=== PATIENT | female | born 1965 | race Caucasian/White ===

== ENCOUNTER 2023-02-03 19:33 | Inpatient (IN) | payer OTHER ==
[~2023-02-03 19:33] MED LIST: Iopamidol 300 61% 100 ML VIAL FS ONE
[2023-02-03] MEDS ORDERED: Acetaminophen 500 MG TAB ONE (19:54)
[2023-02-03] MEDS ORDERED: Cefepime 2 GM VIAL ONE (19:55)
[2023-02-03] MEDS ORDERED: Lidocaine 1% (PF) 30 ML VIAL ONE ×2 (19:55→20:48)
[2023-02-03] MEDS ORDERED: Ibuprofen 200 MG TAB ONE (19:57)
[2023-02-03] MEDS ORDERED: Vancomycin 1.5 GRAM/300 ML BAG 1.5 GM in Premix Bag 1 BAG IVPB ONE (20:15)
[2023-02-03 20:26] LABS: Actual Bicarbonate (HCO3v) 13.3 mEq/L (22-28); Base Excess -9.2 mEq/L (-2 - +2); Calcium, Ionized (venous) 1.07 mmol/L (1.16-1.32); Chloride (VBG) 90 mmol/L (98-106); Critical Notified By: CP.PH; Hematocrit-VBG 36 % (36.0-47.0); Hemoglobin (Hb) 12.1 g/dL (11.7-16.0); Potassium (VBG) 3.99 mmol/L (3.70-5.30); Puncture Site Other Site; Sodium 119.1 mmol/L (133-146); pH (venous) 7.417 (7.32-7.43)
[2023-02-03 20:34] LABS: Hemoglobin 11.1 g/dL (12.0-15.5); Mean Corpuscular HGB CONC 34.7 g/dL (32.0-36.0); Mean Corpuscular Hemoglobin 29.7 pg (27.0-33.0); Mean Corpuscular Volume 85.6 fl (81.6-98.3); Mean Platelet Volume 10.9 fl (7.4-10.4); Platelet Count 49 10x3/uL (150-450); RBC Distribution Width 17.2 % (11.5-14.5); Red Blood Cell (RBC) Count 3.74 10x6/uL (3.90-5.03); White Blood Cell (WBC) Count 4.4 10x3/uL (3.5-10.5)
[2023-02-03 20:35] LABS: MDiff Complete? YES
[2023-02-03 20:39] LABS: INR-International Normal Ratio 2.1; PTT 40.9 sec (22.0-33.0); Prothrombin Time 22.1 sec (9.5-12.1)
[2023-02-03 20:41] LABS: ALT (SGPT) 49 U/L (8-55); AST (SGOT) 251 U/L (5-34); Albumin 2.9 g/dL (3.5-5.0); Alkaline Phosphatase 54 U/L (40-110); Anion Gap 22 mmol/L (10-20); BUN (Urea Nitrogen) 48 mg/dL (9.8-20.1); Bilirubin, Total 8.5 mg/dL (0.2-1.2); Calc. Creatinine Clearance 0 mL/min (70-130); Calcium 8.3 mg/dL (7.8-10.44); Carbon Dioxide 10 mmol/L (22-29); Chloride 90 mmol/L (98-107); Estimated GFR 26; Globulin 3.8 g/dL (2.4-3.5); Glucose 72 mg/dL (70-105); Lipase 16 U/L (8-78); Potassium 3.8 mmol/L (3.5-5.1); Protein, Total 6.7 g/dL (6.0-8.3)
[2023-02-03 21:05] LABS: CKMB 24.9 ng/mL (0-6.6)
[2023-02-03 21:10] LABS: SARS-CoV-2 NAA Rapid Test Not Detected (NotDetected)
[2023-02-03 21:11] LABS: BHCG - Serum Negative (NEGATIVE); Pregs Control Background? CLEAR/WHITE (CLR/WHITE); Pregs Control Bar Appear? YES (CONTROL BAR)
[2023-02-03 21:17] LABS: Sodium 118 mmol/L (136-145)
[2023-02-03 21:26] LABS: Acetaminophen Less than 10 mcg/mL (10.0-30.0); Alcohol Less than 10.0 mg/dL (Less than 10); Salicylate Less than 8.0 mg/dL (15.0-30.0)
[2023-02-03 21:27] LABS: Microcytosis SLIGHT = 6-15 cells (100X) (0-5/hpf); Platelet Adequacy Comment Appears Decreased
[2023-02-03 21:29] LABS: Band 9 % (5-11); Lymphocytes 8 % (21-51); Metamyelocyte 1 % (0-0); Monocytes 10 % (0-10); Neutrophil 72 % (42-75)
[2023-02-03] MEDS ORDERED: Ondansetron PF 4 MG/2 ML Vial IVP PRN (22:18)
[2023-02-03] MEDS ORDERED: Guaifenesin DM 100-10/5 ML UDCUP PO PRN (22:18)
[2023-02-03] MEDS ORDERED: Calcium Carbonate 500 MG ChewTAB PO PRN (22:18)
[2023-02-03] MEDS ORDERED: Senokot S 8.6-50 MG TAB PO PRN (22:18)
[2023-02-03 22:19] LABS: Color Of CSF Supernatant COLORLESS (Colorless); Tube # 1; Unspun CSF Color COLORLESS (Colorless)
[2023-02-03 22:22] LABS: CSF, Glucose 40 mg/dl (40-70); CSF, Protein 41 mg/dL (15-40)
[2023-02-03] MEDS ORDERED: Pantoprazole 40 MG VIAL IVP SCH (22:45)
[2023-02-03] MEDS ORDERED: Albumin 25% 25 GM/100 ML BOT IVPB SCH ×2 (22:45→23:59)
[2023-02-03 22:59] LABS: Lactic Acid 3.8 mmol/L (0.5-2.2)
[2023-02-03 23:03] LABS: Anion Gap 20 mmol/L (10-20); BUN (Urea Nitrogen) 50 mg/dL (9.8-20.1); Calc. Creatinine Clearance 0 mL/min (70-130); Calcium 8.1 mg/dL (7.8-10.44); Carbon Dioxide 11 mmol/L (22-29); Chloride 91 mmol/L (98-107); Estimated GFR 24; Glucose 71 mg/dL (70-105); Potassium 3.4 mmol/L (3.5-5.1); Sodium 119 mmol/L (136-145)
[2023-02-03] MEDS ORDERED: NOREPINEPHRINE 8 MG/250 ML-D5W 250 ML ONE (23:19)
[2023-02-03] MEDS ORDERED: Albumin 25% 100 ML ONE (23:24)
[2023-02-03 23:29] LABS: CSF Source CSF; Clarity Clear (Clear); Tube # 1
[2023-02-03] MEDS ORDERED: Pantoprazole 40 MG VIAL ONE (23:29)
[2023-02-03 23:30] LABS: CSF WBC/NonHematics Count-Man 0 /cu.mm (0-5)
[2023-02-03 23:31] LABS: CSF RBC Count - Manual 2 /cu.mm (None Seen); CSF Source CSF; Clarity Clear (Clear); Tube # 4
[2023-02-03 23:32] LABS: CSF RBC Count - Manual 1 /cu.mm (None Seen); CSF WBC/NonHematics Count-Man 0 /cu.mm (0-5)
[2023-02-03] MEDS ORDERED: Thiamine HCl 200 MG/2 ML VIAL ONE (23:58)
[2023-02-03] MEDS ORDERED: Meropenem 500 MG VIAL ONE (23:58)
[2023-02-04] MEDS ORDERED: Vancomycin Dose by Levels Sliding Scale (Wt 71-99) FS SCH (02:00)
[2023-02-04 03:02] LABS: Bilirubin 1+ (Negative); Blood, Urine 250 (Negative); Clarity Slightly Cloudy (Clear); Glucose, Urine (Dipstick) Normal (Negative); Ketone, Urine 5 mg/dL (Negative); Leukocyte 25 (Negative); Nitrite Negative (Negative); Protein, Urine (Dipstick) 100 mg/dl (Neg-Trace)
[2023-02-04 03:12] LABS: Bacteria/HPF 1+ HPF (None Seen); CAUTI Indications for Culture Alt mental st,lethar; Transitional Epithelial 0-3 HPF (None Seen)
[2023-02-04 03:13] LABS: Urine Culture Reflex No No
[2023-02-04 04:28] LABS: Lactic Acid 2.4 mmol/L (0.5-2.2)
[2023-02-04 04:30] LABS: Hematocrit 30.8 % (34.9-44.5); Hemoglobin 10.6 g/dL (12.0-15.5); Mean Corpuscular HGB CONC 34.4 g/dL (32.0-36.0); Mean Corpuscular Hemoglobin 29.4 pg (27.0-33.0); Mean Corpuscular Volume 85.3 fl (81.6-98.3); Mean Platelet Volume 10.6 fl (7.4-10.4); Platelet Count 40 10x3/uL (150-450); RBC Distribution Width 17.3 % (11.5-14.5); Red Blood Cell (RBC) Count 3.61 10x6/uL (3.90-5.03); White Blood Cell (WBC) Count 6.1 10x3/uL (3.5-10.5)
[2023-02-04 04:31] LABS: PTT 36.2 sec (22.0-33.0); Prothrombin Time 21.2 sec (9.5-12.1)
[2023-02-04 04:33] LABS: ALT (SGPT) 105 U/L (8-55); AST (SGOT) 687 U/L (5-34); Albumin 3.3 g/dL (3.5-5.0); Alkaline Phosphatase 50 U/L (40-110); Anion Gap 21 mmol/L (10-20); BUN (Urea Nitrogen) 55 mg/dL (9.8-20.1); Bilirubin, Total 9.3 mg/dL (0.2-1.2); Calc. Creatinine Clearance 29 mL/min (70-130); Calcium 8.3 mg/dL (7.8-10.44); Carbon Dioxide 12 mmol/L (22-29); Chloride 90 mmol/L (98-107); Estimated GFR 23; Globulin 3.7 g/dL (2.4-3.5); Glucose 77 mg/dL (70-105); Potassium 3.4 mmol/L (3.5-5.1); Sodium 120 mmol/L (136-145)
[2023-02-04 04:34] LABS: MDiff Complete? YES
[2023-02-04 05:11] LABS: Platelet Adequacy Comment Appears Decreased
[2023-02-04 05:12] LABS: Large Platelets SLIGHT (None Seen)
[2023-02-04 05:13] LABS: Microcytosis SLIGHT = 6-15 cells (100X) (0-5/hpf)
[2023-02-04 05:17] LABS: Band 12 % (5-11); Eosinophils 1 % (0-10); Lymphocytes 5 % (21-51); Metamyelocyte 2 % (0-0); Monocytes 16 % (0-10); Neutrophil 64 % (42-75); Nucleated RBC (Manual Ct) 2 % (0)
[2023-02-04 05:57] LABS: CK (CPK) 31464 U/L (29-168)
[2023-02-04] MEDS: Albumin 25% 25 GM/100 ML BOT IVPB SCH ×3 (05:59→17:21)
[2023-02-04] MEDS ORDERED: Albumin 25% 100 ML ONE (06:00)
[2023-02-04 07:27] LABS: Creatinine, Urine 175.26 mg/dL (47-110); Protein, Urine Random Quant 90 mg/dL (1-14)
[2023-02-04] MEDS: Sodium Bicarbonate 150 MEQ in Dextrose 5% in Water 1,000 ML IV SCH ×3 (08:20→21:56)
[2023-02-04 08:27] LABS: Anion Gap 22 mmol/L (10-20); BUN (Urea Nitrogen) 59 mg/dL (9.8-20.1); Calc. Creatinine Clearance 28 mL/min (70-130); Calcium 8.5 mg/dL (7.8-10.44); Carbon Dioxide 12 mmol/L (22-29); Chloride 91 mmol/L (98-107); Estimated GFR 22; Glucose 75 mg/dL (70-105); Potassium 3.4 mmol/L (3.5-5.1); Sodium 122 mmol/L (136-145)
[2023-02-04] MEDS ORDERED: Potassium Bicarbonate/Cit Ac 20 MEQ TAB PO SCH (08:45)
[2023-02-04] MEDS ORDERED: Vancomycin 1 GM in Premix Bag 1 BAG IVPB SCH (09:00)
[2023-02-04] MEDS: Thiamine HCl 200 MG/2 ML VIAL SLOW IVP SCH (09:29)
[2023-02-04 09:34] LABS: Phosphorus 4.9 mg/dL (2.3-4.7)
[2023-02-04] MEDS: Folic Acid 1 MG TAB PO SCH (09:38)
[2023-02-04] MEDS: Pantoprazole 40 MG VIAL IVP SCH ×2 (09:38→21:51)
[2023-02-04] MEDS: Multivitamin W/ Minerals 1 TAB PO SCH (09:38)
[2023-02-04] MEDS: Rifaximin 200 MG TAB PO SCH ×2 (10:05→21:56)
[2023-02-04 10:45] LABS: Bilirubin Neg (Negative); Blood, Urine 250 (Negative); Clarity Cloudy (Clear); Glucose, Urine (Dipstick) Normal (Negative); Ketone, Urine 5 mg/dL (Negative); Leukocyte 25 (Negative); Nitrite Negative (Negative); Protein, Urine (Dipstick) 100 mg/dl (Neg-Trace); Specific Gravity, Urine 1.015 (1.005-1.030); Urobilinogen Normal mg/dL (Less than 2)
[2023-02-04 10:51] LABS: Amphetamine Not Detected (NotDetected); Barbiturates Screen Not Detected (NotDetected); Benzodiazepine Screen Not Detected (NotDetected); Cocaine Metabolite Screen Not Detected (NotDetected); Methadone Not Detected (NotDetected); Methamphetamine Not Detected (NotDetected); Opiate Screen Not Detected (NotDetected); Oxycodone Screen Not Detected (NotDetected); Phencyclidine (PCP) Not Detected (NotDetected); THC/Cannabinoid Screen Not Detected (NotDetected); Tricyclic Screen Not Detected (NotDetected)
[2023-02-04 11:10] LABS: Legionella Urinary Ag Negative (Negative); Strep pneumo Urine Ag NEGATIVE (NEGATIVE)
[2023-02-04 11:11] LABS: Bacteria/HPF 2+ HPF (None Seen)
[2023-02-04] MEDS: NOREPINEPHRINE 8 MG/250 ML-D5W 250 ML IVPB SCH ×2 (11:39→22:37)
[2023-02-04] MEDS: Meropenem 500 MG in Sodium Chloride 0.9% 100 ML IVPB SCH (11:42)
[2023-02-04 13:26] LABS: Sodium, Urine Less than 20 mmol/L (Not Available); Urea Nitrogen, Random Urine 255 mg/dl
[2023-02-04 14:35] LABS: Potassium, Urine 25.9 mmol/L; Sodium, Urine Less than 20 mmol/L (Not Available)
[2023-02-04 14:42] LABS: Hep A IgM AB Non-Reactive S/CO (NonReactive); Hep A IgM S/CO 0.23 S/CO (0-0.79); Hep C IgG Ab Non-Reactive S/CO (NonReactive)
[2023-02-04 14:51] LABS: HBCM Index 1.25 S/CO (0-0.79); Hepatitis B Core IgM Abs Reactive S/CO (NonReactive)
[2023-02-04 16:13] LABS: Anion Gap 20 mmol/L (10-20); BUN (Urea Nitrogen) 65 mg/dL (9.8-20.1); Calc. Creatinine Clearance 24 mL/min (70-130); Calcium 7.9 mg/dL (7.8-10.44); Carbon Dioxide 15 mmol/L (22-29); Chloride 89 mmol/L (98-107); Estimated GFR 18; Glucose 114 mg/dL (70-105); Potassium 3.2 mmol/L (3.5-5.1); Sodium 121 mmol/L (136-145)
[2023-02-04] MEDS: Hydrocortisone Sod Succ/PF 100 mg/2 ml Vial IVP SCH ×2 (17:20→22:06)
[2023-02-04] MEDS ORDERED: Potassium Chloride 20 MEQ TAB PO SCH (18:00)
[2023-02-04 18:46] LABS: Hep B Surf Ag Non-Reactive S/CO (NonReactive)
[2023-02-04 21:27] LABS: Calcium 7.6 mg/dL (7.8-10.44); Chloride 88 mmol/L (98-107); Potassium 3.1 mmol/L (3.5-5.1); Sodium 123 mmol/L (136-145)
[2023-02-04 21:37] LABS: BUN (Urea Nitrogen) 71 mg/dL (9.8-20.1); Calc. Creatinine Clearance 22 mL/min (70-130); Carbon Dioxide 16 mmol/L (22-29); Estimated GFR 16; Glucose 140 mg/dL (70-105)
[2023-02-04 21:48] LABS: Anion Gap 22 mmol/L (10-20)
[2023-02-04] MEDS: Vancomycin HCl 125 MG Capsule PO SCH (21:50)
[2023-02-04] MEDS: Potassium Chloride 20 MEQ in Premix Bag 1 BAG IVPB SCH ×2 (21:51→23:13)
[2023-02-04] MEDS: metroNIDAZOLE 500 MG in Premix Bag 1 BAG IVPB SCH (21:51)
[2023-02-04] MEDS: OCTREOTIDE ACETATE IVPB SCH (21:55)
[2023-02-04] MEDS: SODIUM CHLORIDE IVPB SCH (21:55)
[2023-02-04] MEDS: ADMIXTURE FEE IVPB SCH (21:55)
[2023-02-04] MEDS: Lorazepam 2 MG/ML VIAL SLOW IVP PRN (22:10)
[2023-02-04] MEDS ORDERED: Lorazepam 2 MG/ML VIAL ONE (22:11)
[2023-02-04 22:29] LABS: Vancomycin, Random 17.5 ug/mL (See Comment)
[2023-02-04] MEDS ORDERED: Vancomycin HCl 500 MG in Sodium Chloride 0.9% 100 ML IVPB SCH (22:45)
[2023-02-05] MEDS: Meropenem 500 MG in Sodium Chloride 0.9% 100 ML IVPB SCH ×2 (00:11→12:00)
[2023-02-05] MEDS: Thiamine HCl 200 MG/2 ML VIAL SLOW IVP SCH ×2 (00:21→22:31)
[2023-02-05 01:08] LABS: Campy jejuni + coli by PCR Negative (Negative); STEC Shiga Toxin 1+2 Negative (Negative); Salmonella spp. by PCR Negative (Negative); Shigella spp + EIEC by PCR Negative (Negative)
[2023-02-05 01:22] LABS: Actual Bicarbonate (HCO3v) 20.1 mEq/L (22-28); Base Excess -3.7 mEq/L (-2 - +2); Calcium, Ionized (venous) 0.98 mmol/L (1.16-1.32); Chloride (VBG) 87 mmol/L (98-106); Hematocrit-VBG 33 % (36.0-47.0); Hemoglobin (Hb) 11.1 g/dL (11.7-16.0); Potassium (VBG) 3.66 mmol/L (3.70-5.30); Puncture Site Other Site; RapidComm Collect By CBN; Sodium 120.2 mmol/L (133-146); pH (venous) 7.415 (7.32-7.43)
[2023-02-05] MEDS: Vancomycin HCl 125 MG Capsule PO SCH ×4 (04:08→19:32)
[2023-02-05 04:36] LABS: Hematocrit 30.5 % (34.9-44.5); Hemoglobin 10.6 g/dL (12.0-15.5); Mean Corpuscular HGB CONC 34.8 g/dL (32.0-36.0); Mean Corpuscular Hemoglobin 29.5 pg (27.0-33.0); Platelet Count 31 10x3/uL (150-450); RBC Distribution Width 17.5 % (11.5-14.5); Red Blood Cell (RBC) Count 3.59 10x6/uL (3.90-5.03); White Blood Cell (WBC) Count 12.9 10x3/uL (3.5-10.5)
[2023-02-05 04:37] LABS: MDiff Complete? YES
[2023-02-05 04:54] LABS: ALT (SGPT) 134 U/L (8-55); AST (SGOT) 571 U/L (5-34); Albumin 3.4 g/dL (3.5-5.0); Alkaline Phosphatase 95 U/L (40-110); Anion Gap 20 mmol/L (10-20); BUN (Urea Nitrogen) 72 mg/dL (9.8-20.1); Bilirubin, Total 10.1 mg/dL (0.2-1.2); Calc. Creatinine Clearance 21 mL/min (70-130); Calcium 7.9 mg/dL (7.8-10.44); Carbon Dioxide 17 mmol/L (22-29); Chloride 87 mmol/L (98-107); Estimated GFR 15; Globulin 3.5 g/dL (2.4-3.5); Glucose 152 mg/dL (70-105); Magnesium 2.1 mg/dL (1.6-2.6); Potassium 3.8 mmol/L (3.5-5.1); Protein, Total 6.9 g/dL (6.0-8.3); Sodium 120 mmol/L (136-145)
[2023-02-05] MEDS: metroNIDAZOLE 500 MG in Premix Bag 1 BAG IVPB SCH ×3 (05:15→22:30)
[2023-02-05] MEDS: OCTREOTIDE ACETATE IVPB SCH ×3 (05:15→21:29)
[2023-02-05] MEDS: ADMIXTURE FEE IVPB SCH ×3 (05:15→21:29)
[2023-02-05] MEDS: SODIUM CHLORIDE IVPB SCH ×3 (05:15→21:29)
[2023-02-05] MEDS: Hydrocortisone Sod Succ/PF 100 mg/2 ml Vial IVP SCH ×4 (05:16→22:32)
[2023-02-05 05:18] LABS: Platelet Adequacy Comment Appears Decreased
[2023-02-05 05:22] LABS: Microcytosis SLIGHT = 6-15 cells (100X) (0-5/hpf)
[2023-02-05 05:24] LABS: Band 11 % (5-11); Eosinophils 1 % (0-10); Lymphocytes 6 % (21-51); Metamyelocyte 2 % (0-0); Monocytes 11 % (0-10); Neutrophil 69 % (42-75)
[2023-02-05] MEDS ORDERED: Albumin 25% 25 GM/100 ML BOT IVPB SCH (06:45)
[2023-02-05] MEDS: Pantoprazole 40 MG VIAL IVP SCH ×2 (07:58→20:20)
[2023-02-05] MEDS: Folic Acid 1 MG TAB PO SCH (11:03)
[2023-02-05] MEDS: Rifaximin 200 MG TAB PO SCH ×2 (11:04→19:31)
[2023-02-05] MEDS: Multivitamin W/ Minerals 1 TAB PO SCH (11:04)
[2023-02-05] MEDS: Albumin 25% 25 GM/100 ML BOT IVPB SCH ×2 (11:10→17:24)
[2023-02-05] MEDS ORDERED: Vancomycin 1 GM in Premix Bag 1 BAG IVPB SCH (13:45)
[2023-02-05] MEDS: NOREPINEPHRINE 8 MG/250 ML-D5W 250 ML IVPB SCH (15:53)
[2023-02-05 23:29] LABS: Vancomycin, Random 20.3 ug/mL (See Comment)
[2023-02-06] MEDS: Meropenem 500 MG in Sodium Chloride 0.9% 100 ML IVPB SCH ×3 (00:24→23:14)
[2023-02-06] MEDS: Albumin 25% 25 GM/100 ML BOT IVPB SCH (00:24)
[2023-02-06] MEDS: Lorazepam 2 MG/ML VIAL SLOW IVP PRN ×5 (03:07→21:57)
[2023-02-06] MEDS: Vancomycin HCl 125 MG Capsule PO SCH ×4 (03:07→20:53)
[2023-02-06] MEDS: OCTREOTIDE ACETATE IVPB SCH ×3 (05:09→21:57)
[2023-02-06] MEDS: SODIUM CHLORIDE IVPB SCH ×3 (05:09→21:57)
[2023-02-06] MEDS: ADMIXTURE FEE IVPB SCH ×3 (05:09→21:57)
[2023-02-06] MEDS: Hydrocortisone Sod Succ/PF 100 mg/2 ml Vial IVP SCH ×4 (05:14→23:15)
[2023-02-06] MEDS: metroNIDAZOLE 500 MG in Premix Bag 1 BAG IVPB SCH ×3 (05:14→21:01)
[2023-02-06 06:01] LABS: ALT (SGPT) 107 U/L (8-55); AST (SGOT) 299 U/L (5-34); Alkaline Phosphatase 106 U/L (40-110); Anion Gap 25 mmol/L (10-20); BUN (Urea Nitrogen) 90 mg/dL (9.8-20.1); Bilirubin, Total 10.7 mg/dL (0.2-1.2); Calc. Creatinine Clearance 17 mL/min (70-130); Calcium 8.2 mg/dL (7.8-10.44); Carbon Dioxide 15 mmol/L (22-29); Chloride 89 mmol/L (98-107); Estimated GFR 11; Globulin 3.2 g/dL (2.4-3.5); Glucose 115 mg/dL (70-105); Potassium 4.2 mmol/L (3.5-5.1); Protein, Total 7.2 g/dL (6.0-8.3); Sodium 125 mmol/L (136-145)
[2023-02-06 06:05] LABS: Hematocrit 28.5 % (34.9-44.5); Hemoglobin 9.8 g/dL (12.0-15.5); Mean Corpuscular HGB CONC 34.4 g/dL (32.0-36.0); Mean Corpuscular Hemoglobin 29.4 pg (27.0-33.0); Mean Corpuscular Volume 85.6 fl (81.6-98.3); Platelet Count 22 10x3/uL (150-450); RBC Distribution Width 17.8 % (11.5-14.5); Red Blood Cell (RBC) Count 3.33 10x6/uL (3.90-5.03); White Blood Cell (WBC) Count 19.1 10x3/uL (3.5-10.5)
[2023-02-06 06:11] LABS: MDiff Complete? YES
[2023-02-06 06:13] LABS: INR-International Normal Ratio 1.9; PTT 37.3 sec (22.0-33.0); Prothrombin Time 19.7 sec (9.5-12.1)
[2023-02-06 06:28] LABS: CK (CPK) 4721 U/L (29-168)
[2023-02-06 06:29] LABS: Microcytosis SLIGHT = 6-15 cells (100X) (0-5/hpf); Platelet Adequacy Comment Appears Decreased
[2023-02-06 06:31] LABS: Band 12 % (5-11); Lymphocytes 5 % (21-51); Metamyelocyte 1 % (0-0); Monocytes 5 % (0-10); Neutrophil 77 % (42-75)
[2023-02-06] MEDS: Pantoprazole 40 MG VIAL IVP SCH ×2 (08:34→20:56)
[2023-02-06] MEDS: Folic Acid 1 MG TAB PO SCH (08:42)
[2023-02-06] MEDS: Multivitamin W/ Minerals 1 TAB PO SCH (08:42)
[2023-02-06] MEDS: Rifaximin 200 MG TAB PO SCH ×2 (08:43→20:53)
[2023-02-06] MEDS: Thiamine HCl 200 MG/2 ML VIAL SLOW IVP SCH (23:15)
[2023-02-07] MEDS: Lorazepam 2 MG/ML VIAL SLOW IVP PRN ×2 (00:56→02:48)
[2023-02-07] MEDS ORDERED: Morphine 2 MG/ML VIAL SLOW IVP SCH ×2 (01:45→02:45)
[2023-02-07] MEDS ORDERED: Morphine 2 MG/ML VIAL SLOW IVP PRN ×2 (02:39→09:51)
[2023-02-07] MEDS: Vancomycin HCl 125 MG Capsule PO SCH ×2 (02:53→08:33)
[2023-02-07] MEDS ORDERED: Scopolamine 1.5 mg/72 hour Patch TD SCH (03:00)
[2023-02-07] MEDS: Hydrocortisone Sod Succ/PF 100 mg/2 ml Vial IVP SCH (04:58)
[2023-02-07] MEDS: SODIUM CHLORIDE IVPB SCH (05:00)
[2023-02-07] MEDS: OCTREOTIDE ACETATE IVPB SCH (05:00)
[2023-02-07] MEDS: metroNIDAZOLE 500 MG in Premix Bag 1 BAG IVPB SCH (05:00)
[2023-02-07] MEDS: ADMIXTURE FEE IVPB SCH (05:00)
[2023-02-07] MEDS: Pantoprazole 40 MG VIAL IVP SCH (08:07)
[2023-02-07] MEDS: Folic Acid 1 MG TAB PO SCH (08:32)
[2023-02-07] MEDS: Multivitamin W/ Minerals 1 TAB PO SCH (08:33)
[2023-02-07] MEDS: Rifaximin 200 MG TAB PO SCH (08:33)
[2023-02-07] MEDS ORDERED: Lorazepam 2 MG/ML VIAL SLOW IVP PRN ×2 (09:50→09:51)
[2023-02-07] MEDS: Morphine 4 MG/ML VIAL SLOW IVP PRN ×3 (10:44→21:23)
[2023-02-07 11:17] LABS: Adenovirus F 40-41 Not Detected (Not Detected); Astrovirus Not Detected (Not Detected); C. difficile toxin A+B DETECTED (Not Detected); Campylobacter by PCR Not Detected (Not Detected); Cryptosporidium Not Detected (Not Detected); Cyclospora cayetanensis Not Detected (Not Detected); Entamoeba histolytica Not Detected (Not Detected); Enteroaggregative E. coli Not Detected (Not Detected); Enteropathogenic E. coli Not Detected (Not Detected); Enterotoxigenic E. coli Not Detected (Not Detected); Giardia lamblia Not Detected (Not Detected); Norovirus GI-GII Not Detected (Not Detected); Plesiomonas shigelloides Not Detected (Not Detected); Rotavirus A Not Detected (Not Detected); Salmonella Not Detected (Not Detected); Sapovirus Not Detected (Not Detected); Shiga-toxin-producing E coli Not Detected (Not Detected); Shigella/Enteroinvasive E coli Not Detected (Not Detected); Vibrio Not Detected (Not Detected); Vibrio cholerae Not Detected (Not Detected); Yersinia enterocolitica Not Detected (Not Detected)
[2023-02-07 21:36] LABS: Mycoplasma pneumoniae IgG AB 807 U/mL (0-99); Mycoplasma pneumoniae IgM AB Less than 770 U/mL (0-769)
[2023-02-08] MEDS: Morphine 4 MG/ML VIAL SLOW IVP PRN ×2 (16:39→23:20)
[2023-02-09] MEDS: Morphine 4 MG/ML VIAL SLOW IVP PRN ×5 (05:13→21:38)
[2023-02-09 20:03] VITALS: BP 143/65; TEMP 103.1
== END 2023-02-10 02:20 | disposition expired | DRG 871 ==
LOC: CSHERS 19:33 → CSHERHOLD 02-04 01:43 → CSHICU 02-04 09:31 → CSHTELE 02-08 17:58
PROVIDERS: ADMIT Student in an Organized Health Care Education/Training Program; ATTEND Internal Medicine
PROC: 0T9B70Z Drainage of Bladder with Drainage Device, Via Natural or Artificial Opening (ICD-10-PCS; principal; 2023-02-04)
PROC: 06HY33Z Insertion of Infusion Device into Lower Vein, Percutaneous Approach (ICD-10-PCS; 2023-02-04)
PROC: 009U3ZX Drainage of Spinal Canal, Percutaneous Approach, Diagnostic (ICD-10-PCS; 2023-02-04)
PROC: 4A133R1 Monitoring of Arterial Saturation, Peripheral, Percutaneous Approach (ICD-10-PCS; 2023-02-04)
PROC: 3E043XZ Introduction of Vasopressor into Central Vein, Percutaneous Approach (ICD-10-PCS; 2023-02-04)
PROC: 30243J1 Transfusion of Nonautologous Serum Albumin into Central Vein, Percutaneous Approach (ICD-10-PCS; 2023-02-04)
PROC: 3E04329 Introduction of Other Anti-infective into Central Vein, Percutaneous Approach (ICD-10-PCS; 2023-02-04)
PROC: 3E03329 Introduction of Other Anti-infective into Peripheral Vein, Percutaneous Approach (ICD-10-PCS; 2023-02-04)
PROC: 5A09357 Assistance with Respiratory Ventilation, Less than 24 Consecutive Hours, Continuous Positive Airway Pressure (ICD-10-PCS; 2023-02-05)
DX: A41.9 Sepsis, unspecified organism (principal); G92.8 Other toxic encephalopathy; J18.9 Pneumonia, unspecified organism; R65.21 Severe sepsis with septic shock; J96.01 Acute respiratory failure with hypoxia; K76.7 Hepatorenal syndrome; J69.0 Pneumonitis due to inhalation of food and vomit; K72.00 Acute and subacute hepatic failure without coma; N18.6 End stage renal disease; N17.9 Acute kidney failure, unspecified; E87.1 Hypo-osmolality and hyponatremia; M62.82 Rhabdomyolysis; A04.72 Enterocolitis due to Clostridium difficile, not specified as recurrent; J91.8 Pleural effusion in other conditions classified elsewhere; K76.6 Portal hypertension; J98.11 Atelectasis; J94.8 Other specified pleural conditions; D68.4 Acquired coagulation factor deficiency; E87.21 Acute metabolic acidosis; I12.0 Hypertensive chronic kidney disease with stage 5 chronic kidney disease or end stage renal disease; Z66 Do not resuscitate; Z51.5 Encounter for palliative care; E80.6 Other disorders of bilirubin metabolism; D50.9 Iron deficiency anemia, unspecified; F17.210 Nicotine dependence, cigarettes, uncomplicated; K70.31 Alcoholic cirrhosis of liver with ascites; E87.6 Hypokalemia; K72.10 Chronic hepatic failure without coma; K76.82 Hepatic encephalopathy; E88.09 Other disorders of plasma-protein metabolism, not elsewhere classified; F10.10 Alcohol abuse, uncomplicated; D69.6 Thrombocytopenia, unspecified; F14.11 Cocaine abuse, in remission; K70.10 Alcoholic hepatitis without ascites
CPT/HCPCS: 36415; 36416; 70450; 71045; 71260; 72125; 74177; 80053; 80074; 80202; 80306; 80307; 81001; 82105; 82140; 82436; 82550; 82553; 82570; 82805; 82945; 83605; 83615; 83630; 83690; 83735; 83880; 83930; 83935; 84100; 84133; 84156; 84157; 84300; 84443; 84484; 84540; 84703; 85025; 85610; 85730; 86140; 87040; 87070; 87077; 87086; 87149; 87205; 87324; 87449; 87493; 87505; 87507; 87804; 87899; 89051; 93005; 93306; 94660; 94760; 94762; 96374; 96375; C9113; J0692; J1720; J2001; J2060; J2185; J2270; J2272; J2354; J2405; J3370; J3411; J3480; J3490; J7070; P9047; Q9967; U0002